=== PATIENT | male | born 1980 | race Hispanic/Latino ===

== ENCOUNTER 2019-09-07 16:13 | Emergency (ER) | payer SELFPAY | END 2019-09-07 17:01 | disposition home or self-care (01) | LOC: ERS 16:13 | DX: G51.0 Bell's palsy (principal) | CPT/HCPCS: 99284 ==

== ENCOUNTER 2020-03-26 08:57 | Inpatient (IN) | payer OTHER, SELFPAY ==
[2020-03-26] MEDS ORDERED: Fentanyl 100 MCG/2 ML VIAL ONE (09:52)
[2020-03-26] MEDS ORDERED: Ondansetron PF 4 MG/2 ML Vial ONE (09:52)
[2020-03-26 09:58] LABS: #Basophils 0.1 thou/uL (0.0-0.2); #Eosinphils 0.1 thou/uL (0.0-0.7); #Lymphocytes 2.2 thou/uL (1.20-3.40); #Monocytes 0.5 thou/uL (0.11-0.59); #Neutrophils 12.6 thou/uL (1.40-6.50); %Basophils 0.4 % (0.0-1.0); %Eosinophils 0.6 % (0.0-10.0); Mean Corpuscular Hemoglobin 30.6 pg (27.0-31.0); Mean Platelet Volume 9.7 fL (7.4-10.4); Platelet Count 221 thou/uL (130-400); RBC Distribution Width 12.8 % (11.5-14.5); Red Blood Cell (RBC) Count 5.23 mill/uL (4.70-6.10); White Blood Cell (WBC) Count 15.3 thou/uL (4.8-10.8)
[2020-03-26 10:19] LABS: ALT (SGPT) 40 U/L (8-55); AST (SGOT) 33 U/L (5-34); Albumin 4.5 g/dL (3.5-5.0); Alkaline Phosphatase 77 U/L (40-110); Anion Gap 14 mmol/L (10-20); BUN (Urea Nitrogen) 14 mg/dL (8.9-20.6); Bilirubin, Total 0.5 mg/dL (0.2-1.2); Calc. Creatinine Clearance 0 mL/min (70-130); Carbon Dioxide 23 mmol/L (22-29); Chloride 107 mmol/L (98-107); Estimated GFR-MDRD Greater than 90; Globulin 3.1 g/dL (2.4-3.5); Glucose 129 mg/dL (70-105); Lipase 21 U/L (8-78); Potassium 3.8 mmol/L (3.5-5.1); Protein, Total 7.6 g/dL (6.0-8.3); Sodium 140 mmol/L (136-145)
--- NOTE | 2020-03-26 10:38 | RAD ---
Chest one view HISTORY: Chest and abdomen pain. FINDINGS: Cardiac silhouette and pulmonary vasculature are unremarkable. Mediastinum is midline. No confluent airspace consolidation or evidence of pneumothorax. IMPRESSION : No abnormalities are demonstrated.
[2020-03-26 10:53] LABS: CKMB 3.9 ng/mL (0-6.6)
--- NOTE | 2020-03-26 11:02 | ULT ---
GALLBLADDER ULTRASOUND: INDICATIONS: Abdominal pain. FINDINGS: The gallbladder is mildly distended. There is echogenic sludge seen dependently in the gallbladder. T here is no definite gallstone identified. Gallbladder wall thickness appears normal. The common duct is of normal caliber. The liver is echogenic, suggesting fatty infiltration, and there is evidence of fatty sparing near th e gallbladder fossa. The pancreas is obscured. The right kidney is imaged and appears unremarkable. IMPRESSION: 1. Echogenic sludge layering dependently in the gallbladder. No definite gallstone identified. 2. Hepatic steatosis. POS: AGW
[2020-03-26 12:10] LABS: Bilirubin Negative (Negative); Blood, Urine Negative (Negative); Clarity Clear (Clear); Glucose, Urine (Dipstick) Normal (Negative); Ketone, Urine Negative (Negative); Leukocyte Negative Leu/uL (Negative); Nitrite Negative (Negative); Protein, Urine (Dipstick) 20 mg/dL (Neg-Trace); Urobilinogen Normal mg/dL (Less than 2); pH, Urine 5.5 (5.0-9.0)
[2020-03-26] MEDS ORDERED: Acetaminophen 325 MG TAB PO PRN (14:14)
[2020-03-26] MEDS ORDERED: Senokot S 8.6-50 MG TAB PO PRN (14:14)
[2020-03-26] MEDS ORDERED: Sodium Chloride 0.9% 1,000 ML IV SCH (14:15)
[2020-03-26] MEDS ORDERED: Ondansetron PF 4 MG/2 ML Vial IVP PRN (14:19)
[2020-03-26] MEDS ORDERED: Morphine 2 MG/ML VIAL SLOW IVP PRN (14:20)
[2020-03-26] MEDS ORDERED: Morphine 4 MG/ML VIAL SLOW IVP PRN (14:20)
[2020-03-26 16:49] LABS: Troponin I 0.035 ng/mL (< 0.028)
[2020-03-26] MEDS: Piperacillin/Tazobactam 4.5 GM in Sodium Chloride 0.9% 100 ML IVPB SCH (17:01)
[2020-03-26 17:55] LABS: Amphetamine Not Detected (NotDetected); Barbiturates Screen Not Detected (NotDetected); Benzodiazepine Screen Not Detected (NotDetected); Cocaine Metabolite Screen Not Detected (NotDetected); Medtox Control Line Valid? VALID (VALID); Medtox Reader # READER 1; Methadone Not Detected (NotDetected); Methamphetamine Not Detected (NotDetected); Opiate Screen Not Detected (NotDetected); Oxycodone Screen Not Detected (NotDetected); Phencyclidine (PCP) Not Detected (NotDetected); THC/Cannabinoid Screen Not Detected (NotDetected); Tricyclic Screen Not Detected (NotDetected)
[2020-03-26 17:57] VITALS: BMI 34.9
[2020-03-26] MEDS ORDERED: traMADol HCl 50 MG TAB PO PRN ×2 (19:13)
[2020-03-26 19:44] LABS: Troponin I 0.029 ng/mL (< 0.028)
[2020-03-26] MEDS ORDERED: Ketorolac Tromethamine 30 MG/ML VIAL IVP SCH (20:00)
[2020-03-26] MEDS: Famotidine 20 MG TAB PO SCH (20:13)
[2020-03-26] MEDS: Sodium Chloride 0.9% 1,000 ML IV SCH (20:14)
[2020-03-27] MEDS: Piperacillin/Tazobactam 4.5 GM in Sodium Chloride 0.9% 100 ML IVPB SCH ×3 (00:04→19:27)
[2020-03-27] MEDS ORDERED: Ketorolac Tromethamine 30 MG/ML VIAL IVP PRN (01:00)
[2020-03-27] MEDS: Acetaminophen 500 MG TAB PO PRN ×2 (03:51→20:40)
[2020-03-27] MEDS: Sodium Chloride 0.9% 1,000 ML IV SCH ×3 (04:30→15:00)
[2020-03-27 04:45] LABS: ALT (SGPT) 32 U/L (8-55); AST (SGOT) 23 U/L (5-34); Alkaline Phosphatase 63 U/L (40-110); Anion Gap 13 mmol/L (10-20); BUN (Urea Nitrogen) 13 mg/dL (8.9-20.6); Bilirubin, Total 1.3 mg/dL (0.2-1.2); Calc. Creatinine Clearance 131 mL/min (70-130); Calcium 8.4 mg/dL (7.8-10.44); Carbon Dioxide 23 mmol/L (22-29); Cardiac Risk 5.4 (Less than 4.5); Chloride 105 mmol/L (98-107); Cholesterol 198 mg/dl (< 200 Desired); Estimated GFR-MDRD 79; Globulin 2.8 g/dL (2.4-3.5); Glucose 113 mg/dL (70-105); HDL Cholesterol 37 mg/dL (>60 Neg Risk); LDL Cholesterol, Calculated 142 mg/dL; Potassium 3.7 mmol/L (3.5-5.1); Protein, Total 6.8 g/dL (6.0-8.3); Sodium 137 mmol/L (136-145); Triglycerides 97 mg/dL (Less than 150)
[2020-03-27 04:48] LABS: Band 31 % (5-11); Hemoglobin 14.4 g/dL (14.0-18.0); Lymphocytes 9 % (21-51); MDiff Complete? YES; Mean Corpuscular HGB CONC 33.4 g/dL (32.0-36.0); Mean Corpuscular Hemoglobin 30.2 pg (27.0-31.0); Mean Corpuscular Volume 90.4 fL (78.0-98.0); Mean Platelet Volume 10.1 fL (7.4-10.4); Monocytes 2 % (0-10); Platelet Count 163 thou/uL (130-400); RBC Distribution Width 12.9 % (11.5-14.5); Red Blood Cell (RBC) Count 4.75 mill/uL (4.70-6.10); White Blood Cell (WBC) Count 14.7 thou/uL (4.8-10.8)
[2020-03-27] MEDS: Famotidine 20 MG TAB PO SCH ×2 (08:20→20:40)
[2020-03-27] MEDS: Aspirin 325 mg Enteric Coated Tablet PO SCH (08:20)
[2020-03-27] MEDS ORDERED: Enoxaparin Sodium 40 MG/0.4 ML SYRINGE SC SCH (09:00)
[2020-03-27] MEDS ORDERED: Glycopyrrolate 0.2 MG/ML 5 ML SYRINGE ONE (09:04)
[2020-03-27] MEDS ORDERED: PROPOFOL 200 MG/20 ML VIAL ONE (09:04)
[2020-03-27] MEDS ORDERED: Lidocaine 1% PF 5 ML VIAL ONE (09:04)
[2020-03-27] MEDS ORDERED: Rocuronium Bromide 10 MG/ML (10ML VIAL) ONE (09:04)
[2020-03-27] MEDS ORDERED: Dexamethasone 20 MG/5 ML VIAL ONE (09:04)
[2020-03-27] MEDS ORDERED: Ondansetron PF 4 MG/2 ML Vial ONE (09:04)
[2020-03-27] MEDS ORDERED: Ketorolac Tromethamine 30 MG/ML VIAL ONE (09:04)
--- NOTE | 2020-03-27 11:52 | HP ---
PRIMARY CARE PHYSICIAN: None. CHIEF COMPLAINT: Nausea, vomiting, abdominal pain. HISTORY OF PRESENT ILLNESS: Mr. Marquis Mao is a 39-year-old man who reported to the emergency room today for abdominal pain, which started yesterday and nausea, vomiting and diarrhea. He reports that he threw up twice yesterday, none today. He does have some diffuse diarrhea. He has abdominal pain, epigastric, right upper quadrant, started about 1'o clock this morning. He reports that he had sausage and bread with the last meal he ate several hours before this pain started. He denies having such pain in the past. It is noted that when he was being checked in to the emergency room, he had some bradycardia at one point when his pulse dropped down to 42 and when they checked his radial pulse, it was irregular and thready. At that time, patient had shut his eyes and said he had a wave of nausea and the episode lasted about 25 seconds. At that point, his heart rate returned to 66 beats per minute and then his heart rate became regular and strong. Workup in the ER with gallbladder ultrasound that showed echogenic sludge layering dependently in the gallbladder. No definite gallstones, fatty liver. He did have a slightly elevated troponin of 0.040. Chest x-ray was no acute findings. Lipase was normal at 21. Comprehensive metabolic profile was unremarkable except for glucose, which is at 129. CBC: White blood cell count at 15.3, hemoglobin at 16, hematocrit at 47. He was noted to have frequent PVCs on the heart monitor. Because of his bradycardic episode and continued frequent EKGs, the ER PA contacted Dr. Epps who said that he would see him, if he was admitted. His EKG showed sinus rhythm with frequent PVCs, beats per minute was 68. He was given a dose of Zofran and a bolus of fluids. He was feeling a little bit better, but pain was persistent. He will be admitted to telemetry for Cardiology and Dr. Orourke was also consulted for the gallbladder sludge and he said that he would see him as well. REVIEW OF SYSTEMS: The patient reports nausea, vomiting and diarrhea. Reports abdominal pain, mostly epigastric, right upper quadrant. PAST MEDICAL HISTORY: None. PAST SURGICAL HISTORY: None. PSYCHIATRIC HISTORY: He does have a little anxiety. CURRENT MEDICATIONS: None. KNOWN ALLERGIES: None. PHYSICAL EXAMINATION: VITAL SIGNS: Blood pressure 140/84, pulse is 88, respiratory rate is 18, sats are 95% on room air. CONSTITUTIONAL: The patient appears nontoxic, but in mild pain distress. He is alert and oriented to person, place, and time. He is Ugandan-speaking only, so exam was done on video using the combine operator service in the emergency room. HEENT: Head is atraumatic and normocephalic. Eyes, pupils are equally round and reactive to light. Extraocular muscles are intact. NECK: Normal range of motion. Trachea is midline. RESPIRATORY: Chest, breath sounds are clear. Chest expansion is equal. CARDIOVASCULAR: Regular heart rate and rhythm. Heart sounds are normal. ABDOMEN: Tender to epigastric and right upper quadrant with moderate intensity. There are no peritoneal signs. No rigidity. No guarding. BACK: Normal inspection, normal range of motion. NEUROLOGIC: Speech is normal. The patient is oriented to person, place, time. SKIN: Warm, dry and normal in color. PLAN/ASSESSMENT: 1. The patient with frequent premature ventricular contractions and an episode of bradycardia while in the emergency room. Dr. Epps from Cardiology was consulted and he will see patient. The patient will be placed on a tele monitor. We will trend troponins, obtain a fasting lipid, thyroid stimulating hormone. Start a full-dose aspirin in a.m. 2. Abdominal pain with gallbladder ultrasound positive for sludge. Dr. Orourke of General surgery has been consulted from the emergency room. 3. We will do gentle hydration and normal saline at 75 mL per hour. Ondansetron as needed for nausea. Morphine as needed for pain. Zosyn 4.5 IV piggyback q.8. 4. Deep venous thrombosis, gastrointestinal prophylaxis started. 5. Dockery virus screening test has been ordered. 6. We will make him clear liquids for tonight, n.p.o. after midnight pending consultations. 7. Case discussed with who agrees with plan. 8. Hospital course dependent on clinical findings. Job ID: [id number]
[2020-03-27 11:58] LABS: SARS-CoV-2 MS2 Positive; SARS-CoV-2 N Gene Negative; SARS-CoV-2 S Gene Negative; SARS-CoV-2 by NAA Not Detected (NotDetected); SARS-CoV-2 orf1ab Negative
--- NOTE | 2020-03-27 12:29 | PDOC.HOSPP ---
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 Patient reports nausea has improved, still some upper abdominal pain. Denies chest pain or difficulty breathing. - Objective Vital Signs & Weight: Vital Signs (12 hours) Temp Pulse Resp BP BP Pulse Ox 03/27/20 08:21 99 F 80 16 118/56 L 98 03/27/20 05:20 99.1 F 03/27/20 03:40 101.3 F H 115 H 18 125/61 96 Weight Weight 216 lb 7 oz I&O: 03/26/20 03/27/20 03/28/20 06:59 06:59 06:59 Intake Total 1980 Output Total 1400 Balance 580 Result Diagrams: 03/27/20 03:20 03/27/20 03:20 Hospitalist ROS - Review of Systems Constitutional: denies: fever, chills Eyes: denies: vision change Respiratory: denies: cough, shortness of breath Cardiovascular: denies: chest pain, palpitations Gastrointestinal: reports: abdominal pain (upper abdominal). denies: nausea, vomiting Genitourinary: denies: dysuria Skin: denies: rash Neurological: denies: weakness - Medication Medications: Active Medications Generic Name Dose Route Start Last Admin Trade Name Freq PRN Reason Stop Dose Admin Acetaminophen 1,000 mg 03/26/20 19:13 03/27/20 03:51 Tylenol PO 1,000 mg Q6H PRN Administration Moderate to Severe Pain (6-10) Aspirin 325 mg 03/27/20 09:00 03/27/20 08:20 Ecotrin PO 325 mg DAILY RACHAEL Administration Famotidine 20 mg 03/26/20 21:00 03/27/20 08:20 Pepcid PO 20 mg BID RACHAEL Administration Piperacillin Sod/Tazobactam 100 mls @ 200 mls/hr 03/26/20 16:00 03/27/20 08: 20 Sod 4.5 gm/ Sodium Chloride IVPB 100 mls 0000,0800,1600 RACHAEL Administration Levofloxacin 750 mg/ Device 150 mls @ 100 mls/hr 03/26/20 20:00 03/26/20 20: 14 IVPB 150 mls 2000 RACHAEL Administration Sodium Chloride 1,000 mls @ 125 mls/hr 03/26/20 20:00 03/27/20 11:12 Normal Saline 0.9% IV Not Given .Q8H RACHAEL Morphine Sulfate 2 mg 03/26/20 14:20 03/27/20 00:07 Morphine SLOW IVP 2 mg Q4H PRN Administration Moderate Pain (4-6) - Exam General Appearance: NAD, awake alert Eye: PERRL ENT: normocephalic atraumatic Heart: RRR, no murmur Respiratory: CTAB, no wheezes Gastrointestinal: soft, non-distended (Tenderness to palpation of epigastric and RUQ region) Extremities: no cyanosis Neurological: cranial nerve grossly intact Musculoskeletal: normal tone, normal strength Psychiatric: normal affect, normal behavior Hosp A/P - Plan VSS WBC 14.7 and T bili 1.3 Troponin down trending TSH within normal limits Cholesterol panel within normal limits - Surgery consulted with plan to OR this afternoon for lap noah - f/u cardiology consult for PVCs - continue fluids and zosyn - npo for lap cholecystectomy
--- NOTE | 2020-03-27 13:09 | CON ---
DATE OF CONSULTATION: HISTORY OF PRESENT ILLNESS: Richy Mao is a 39-year-old male from [place]. He has children in [place]. He is single. 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 He for the first episode experienced epigastric upper abdominal complaints. He denied having any chest pain. He was seen in the emergency room, and ultrasound revealed gallbladder sludge. Bile duct caliber normal. Liver function tests normal. Troponins were minimally elevated. ALLERGIES: NONE. SOCIAL HISTORY: Tobacco, none. Alcohol cessation 3 years ago. He does not use drugs. He does not drink alcohol. 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 He does not have any cardiac symptoms. MEDICATIONS: None. PAST SURGICAL HISTORY: Noncontributory. REVIEW OF SYSTEMS: Ten-point noncontributory. He specifically denies having any episodes of chest pain or pressure. PHYSICAL EXAMINATION: VITAL SIGNS: Height 5 feet 6 inches, 216 pounds, BMI 34. Temperature 97.7, pulse 78, and blood pressure 129/68. HEAD, EARS, EYES, NOSE, AND THROAT: Unremarkable. LUNGS: Clear to auscultation. CARDIAC: Regular rate and rhythm without murmur or gallop. ABDOMEN: Soft. Tenderness in his epigastric right upper quadrant. Positive Carlson sign. EXTREMITIES: Unremarkable. No ankle edema. LABORATORY DATA: As noted. White count 15, hemoglobin 16. Basic metabolic profile and liver function tests normal. Troponin is minimally elevated at 0.04 on admission and 0.035 on followup. ASSESSMENT AND PLAN: 1. Minimally elevated troponins. I have discussed with Dr. Epps. Echocardiogram will be obtained. With his asymptomatic and less risk factor, it is unlikely he will need a stress test. We will await Dr. Epps's consultation. 2. Acute cholecystitis and cholelithiasis. We recommended laparoscopic video cholecystectomy. Risks of infection, bleeding, visceral and biliary injury, open procedure, and complications were discussed. Questions were answered. We will plan this tomorrow after cardiac clearance. 3. COVID test pending. Asymptomatic COVID. No history of COVID illness or exposure. Job ID: [id number]
[2020-03-27] MEDS ORDERED: Lidocaine 1% w/Epinephrine 1:100K 20 ML VIAL ONE (16:33)
[2020-03-27] MEDS ORDERED: Bupivacaine PF 0.5% 30 ML VIAL ONE (16:33)
--- NOTE | 2020-03-27 16:50 | CON ---
DATE OF CONSULTATION: 03/26/2020 REASON FOR CONSULTATION: Preoperative evaluation. HISTORY OF PRESENT ILLNESS: Mr. Marquis Mao is a 39-year-old man, presented with severe abdominal pain, found to have sludge in his gallbladder, continued abdominal pain, and is noted to have PVCs on his EKG. The patient has no chest pain or pressure, heaviness or squeezing. 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 SOCIAL HISTORY: No tobacco. MEDICATIONS: No medications. ALLERGIES: NO ALLERGIES. PHYSICAL EXAMINATION: GENERAL: This is a 39-year-old man, complaining of abdominal pain. VITAL SIGNS: Blood pressure 150/70, pulse 100. LUNGS: Clear. CARDIAC: Normal S1, normal S2. No murmur, rub, or gallop. ABDOMEN: Soft and nontender. EXTREMITIES: Warm and dry. No clubbing. No cyanosis. There is no edema I only did listen to his abdomen, I did not palpate his abdomen. LABORATORY DATA: Toxicology was negative. White blood cell count was elevated at 15.3 with 82% neutrophils. The patient had troponin level in the low indeterminate level at 0.035, 0.040. ASSESSMENT: 1. Abdominal pain, likely related to his gallbladder. 2. Increased white blood cell count. 3. No chest pain. 4. Unifocal PVCs seen in the EKG. This is likely a longstanding finding I suspect. PLAN: 1. Echocardiogram to be done. 2. If within normal limits, can proceed to gallbladder removal. Job ID: [id number]
[2020-03-27] MEDS ORDERED: Midazolam HCl 2 mg/2 ml Vial ONE (17:02)
[2020-03-27] MEDS ORDERED: Fentanyl 100 MCG/2 ML VIAL ONE (17:02)
[2020-03-27] MEDS ORDERED: SUGAMMADEX SODIUM 200 MG/2 ML VIAL ONE (18:02)
[2020-03-27] MEDS ORDERED: Promethazine HCl 25 MG/ML VIAL IM PRN (18:20)
[2020-03-27] MEDS ORDERED: Promethazine HCl 25 MG/ML VIAL SLOW IVP PRN (18:20)
[2020-03-27] MEDS ORDERED: Ondansetron HCl/PF 4 MG/2 ML Vial IVP PRN (18:20)
--- NOTE | 2020-03-27 18:29 | PRG ---
DATE OF SERVICE: 03/27/2020 SUBJECTIVE: Mr. Marquis Mao is still having abdominal pain. No chest pain or pressure. OBJECTIVE: VITAL SIGNS: Blood pressure is 118/60 and pulse is 86. DIAGNOSTIC DATA: Echocardiogram showed normal left ventricular function. ASSESSMENT: 1. Unifocal premature ventricular contractions. 2. Normal left ventricular function. 3. Cholecystitis. PLAN: Okay with me to proceed to cholecystectomy. Job ID: [id number]
--- NOTE | 2020-03-28 01:30 | OP ---
DATE OF PROCEDURE: 03/27/2020 PREOPERATIVE DIAGNOSES: Cholecystitis and cholelithiasis. POSTOPERATIVE DIAGNOSES: Cholecystitis and cholelithiasis. PROCEDURE PERFORMED: Laparoscopic video cholecystectomy. ANESTHESIA: General, local 0.5% Marcaine 30 mL mixed with 1% Xylocaine with epinephrine 20 mL. FINDINGS: Normal-appearing liver, normal abdominal cavity otherwise. DESCRIPTION OF PROCEDURE: The patient was taken to the operating room, where under general anesthesia, abdomen clipped of hair, prepared with ChloraPrep, and draped in routine fashion. Local anesthetic was infiltrated in the skin and subcutaneous tissue about each port site. Infraumbilical incision was made. Pneumoperitoneum to 15 mmHg was obtained with a Veress needle, replaced with a 5 port, laparoscope inserted. Right subxiphoid incision was made and 11 port placed. Right subcostal incision was made in midclavicular and anterior axillary line, the 5 port was placed. Liver appeared to be normal. Fundus grasped at the cephalad. Infundibulum grasped, retracted laterally. Cystic artery and duct dissected free. Critical view obtained. Cystic artery and duct doubly clipped proximally, divided, gallbladder dissected free from liver bed, obtaining good hemostasis. Prior to division of final peritoneal attachments, gallbladder and contents removed, submitted to pathology. Good hemostasis ensured. Irrigant and pneumoperitoneum evacuated. All instruments removed. All skin incisions were approximated with subdermal 4-0 Monocryl and [place] glue applied. Job ID: [id number]
[2020-03-28] MEDS: Acetaminophen 500 MG TAB PO PRN (03:40)
[2020-03-28] MEDS: Famotidine 20 MG TAB PO SCH (08:44)
[2020-03-28] MEDS: Aspirin 325 mg Enteric Coated Tablet PO SCH (08:44)
[2020-03-28 10:34] LABS: Neutrophil 58 % (42-75)
[2020-03-28 11:55] VITALS: BP 120/64; TEMP 98.1
--- NOTE | 2020-03-28 13:44 | PRG ---
DATE OF SERVICE: 03/28/2020 SUBJECTIVE: Richy Mao was kept overnight by Hospitalist Service. He is doing well. He did have a low-grade temperature to 100.8 degrees at 7 p.m. and other temperature at 3:00 in the morning to 101 degrees. He has been afebrile today. His vital signs are stable. He feels much better. He is tolerating his diet. OBJECTIVE: LUNGS: Clear to auscultation. CARDIAC: Regular rate and rhythm without murmur or gallop. ABDOMEN: Soft, nontender. ASSESSMENT AND PLAN: Doing well status post cholecystectomy for acute cholecystitis. We would recommend discharge home on oral antibiotics. Follow up in my office in 2 to 3 weeks. Diet and activity as tolerated, no restrictions. Job ID: [id number]
--- NOTE | 2020-03-28 23:22 | DIS ---
DATE OF ADMISSION: 03/26/2020 DATE OF DISCHARGE: 03/28/2020 ADMISSION DIAGNOSIS: acute cholecystitis PROCEDURES: laproscopic cholecystectomy HOSPITAL COURSE: Mr. Marquis Mao is a 39-year-old gentleman with no significant past medical history, who presented to the emergency department with abdominal pain, nausea, vomiting, and diarrhea. In the emergency department he was found on CT to have sludge in the gallbladder. Surgery was consulted in the emergency department regarding acute cholecystitis and cholelithiasis. On 03/27/2020, patient was taken to the OR for lap cholecystectomy and tolerated procedure well. On 03/28/2020, the patient was postop day 1. He was ambulating well, tolerating PO intake and was stable for discharge home. He was also found to have frequent premature ventricular contractions while in the emergency department. Cardiology was consulted to evaluate patient. Echo was obtained which showed normal ejection fraction at 55% to 60%. The patient was medically cleared by Cardiology for surgical intervention. Patient was examined on day of discharge. Heart was regular rate and rhythm. No murmurs were heard. His lungs were clear to auscultation bilaterally. The patient's abdomen was soft, nondistended. Tenderness to palpation among the surgical sites. These surgical sites were well approximated and healing. No discharge or erythema was noted at surgical sites. No edema of bilateral lower extremities. The patient was tolerating diet and stable for discharge home. DISCHARGE INSTRUCTIONS: Activity as tolerated. He was instructed to have a heart-healthy diet. The patient will be discharged home with Tramadol for pain control and Cipro 500 mg q.12 hours for 5 days. No other medications were started during hospitalization. The patient was instructed to follow up with his PCP within the week and will follow up with Surgery within 2 to 3 weeks of discharge. The patient was discharged home in stable condition. Return precautions were give. Time spent on discharge with patient was greater than 30 minutes. Job ID: [id number] [facility]
[2020-03-31] MEDS ORDERED: Ibuprofen 600 MG TAB PO PRN (19:01)
== END 2020-03-28 13:31 | disposition home or self-care (01) | DRG 419 ==
LOC: ERS 08:57 → ERHOLD 13:00 → 2NO 16:05
PROVIDERS: ADMIT Internal Medicine; ATTEND Internal Medicine
PROC: 0FT44ZZ Resection of Gallbladder, Percutaneous Endoscopic Approach (ICD-10-PCS; principal; 2020-03-27)
DX: K80.00 Calculus of gallbladder with acute cholecystitis without obstruction (principal); I49.3 Ventricular premature depolarization; Z20.828 Contact with and (suspected) exposure to other viral communicable diseases; F41.9 Anxiety disorder, unspecified
CPT/HCPCS: 36415; 71045; 76705; 80053; 80061; 80306; 81003; 82553; 83690; 84443; 84484; 85025; 87635; 88304; 93005; 93306; 96361; 96374; 96375; J1100; J1885; J1956; J2250; J2270; J2405; J2543; J2704; J3010; J3490; S0020; U0003